=== PATIENT | female | born 1995 | race Hispanic/Latino ===

== ENCOUNTER 2018-01-28 03:39 | Emergency (ER) | payer SELFPAY ==
[2018-01-28 03:44] VITALS: BMI 22.1
--- NOTE | 2018-01-28 04:17 | ED PDOC ---
HPI: Psych/Substance Abuse Time Seen by Provider: 01/28/18 04:03 Chief Complaint (Nursing): Alcohol Ingestion Chief Complaint (Provider): Alcohol Ingestion History Per: Patient History/Exam Limitations: no limitations Onset/Duration Of Symptoms: Mins Current Symptoms Are (Timing): Still Present Suicide/Self Injury Attempted (Context): Ingestion Modifying Factor(s): Alcohol Additional Complaint(s): 22 y/o female brought to the ER for alcohol intoxication. Patient admits to drinking alcohol. Denies injuries and drug use. PMD: None Past Medical History Reviewed: Historical Data, Nursing Documentation, Vital Signs Vital Signs: Last Vital Signs Temp 97.8 F 01/28/18 03:44 Pulse 110 H 01/28/18 03:44 Resp 18 01/28/18 03:44 BP 133/97 H 01/28/18 03:44 Pulse Ox 100 01/28/18 03:44 - Medical History PMH: No Chronic Diseases - Surgical History Surgical History: No Surg Hx - Family History Family History: States: Unknown Family Hx - Allergies Allergies/Adverse Reactions: Allergies Allergy/AdvReac Type Severity Reaction Status Date / Time Unobtainable Allergy Verified 01/28/18 03:43 Review of Systems ROS Statement: Except As Marked, All Systems Reviewed And Found Negative Psych: Positive for: Other (EtOH intoxication) Physical Exam - Reviewed Nursing Documentation Reviewed: Yes Vital Signs Reviewed: Yes - Physical Exam Appears: Positive for: No Acute Distress (no physical injury) Head Exam: Positive for: ATRAUMATIC, NORMOCEPHALIC Skin: Positive for: Normal Color, Warm, Dry Eye Exam: Positive for: Normal appearance, EOMI, PERRL Neck: Positive for: Normal, Painless ROM Cardiovascular/Chest: Positive for: Regular Rate, Rhythm. Negative for: Murmur Respiratory: Positive for: Normal Breath Sounds. Negative for: Respiratory Distress Gastrointestinal/Abdominal: Positive for: Normal Exam, Soft. Negative for: Tenderness Extremity: Positive for: Normal ROM. Negative for: Pedal Edema, Deformity Neurologic/Psych: Positive for: Alert, Oriented (x3), Other (Intoxication). Negative for: Motor/Sensory Deficits - ECG O2 Sat by Pulse Oximetry: 100 (RA) Pulse Ox Interpretation: Normal Medical Decision Making Medical Decision Making: Time: 417 A/P: 22 y/o female coming in for alcohol intoxication. -- Patient is alert and oriented x3 with a steady gait. -- Patient is stable for discharge. Scribe Attestation: Documented by Deidre Rojo acting as a scribe for Dr. Jose Angel Varela MD. Provider Scribe Attestation: All medical record entries made by the Scribe were at my direction and personally dictated by me. I have reviewed the chart and agree that the record accurately reflects my personal performance of the history, physical exam, medical decision making, and the department course for this patient. I have also personally directed, reviewed, and agree with the discharge instructions and disposition. Disposition - Clinical Impression Clinical Impression: Alcohol abuse - Disposition Referrals: Alcoholics Anonymous [Outside] Disposition Time: 04:30 Condition: STABLE Instructions: Alcohol Abuse and Alcoholism (DC) Forms: [facility] (Turkmen)
[2018-01-28 04:35] VITALS: BP 125/62; PULSE 96; RESP 16; TEMP 97.9; O2SAT 98
== END 2018-01-28 04:35 | disposition home or self-care (01) ==
LOC: H.ER 03:39
DX: F10.129 Alcohol abuse with intoxication, unspecified (principal)